=== PATIENT | male | born 1955 | race Caucasian/White ===

== ENCOUNTER 2021-09-24 07:40 | Day surgery (SDC) | payer OTHER ==
--- NOTE | 2021-09-16 12:12 | PCM.EKG ---
[facility] Test Date: 2021-09-16 Test Time: 11:52:58 Pat Name: VARSHA GARCIA Department: Room: Gender: M Supervisor Order Takers: : 1955 Requested By: ELIZABETH AMADOR Order Number: [id number] Reading MD: Measurements Intervals [place] Rate: 58 P: 77 TN: 141 QRS: 73 QRSD: 102 T: 35 QT: 407 QTc: 400 Interpretive Statements Sinus rhythm Consider left atrial enlargement No previous ECG available for comparison Please click the below link to view image of tracing.
[2021-09-16 13:24] LABS: BASOPHIL % 0.5 % (0.0-0.2); EOSINOPHIL # 0.2 10^3/uL (0.0-0.2); EOSINOPHIL % 2.2 % (0.0-5.0); LYMPHOCYTES # 1.86 10^3/uL1 (1.0-4.8); LYMPHOCYTES % 24.3 % (24.0-44.0); MEAN CORP HGB 29.5 pg (26-34); MONOCYTES # 0.7 10^3/uL (0.3-0.8); MONOCYTES % 9.4 % (5.0-12.0); NEUTROPHIL # 4.9 10^3/uL (1.8-7.7); NEUTROPHILS % 63.5 % (41.0-85.0); PLATELET COUNT 261 10^3/uL (150-400); RED CELL DISTRIBUTION WIDTH 14.1 % (11.5-14.5)
[2021-09-16 13:28] LABS: CARBON DIOXIDE 29.3 mmol/L (20.0-32)
[~2021-09-24] VITALS: Ht 172.7 cm; Wt 88.9 kg
[~2021-09-24 07:40] MED LIST: ANCEF ONE; CITA10TA8 PO; LACTATED RINGERS 1,000 ML ONE; LEVO88TA5 PO; NS 100ML 100 ML IV ONE; OMEP40CA8 PO; ROSU10TA2 PO; SUPREP BOWEL PREP KIT PO ONE; [UNRECOGNIZED DRUG - CODE] PO
[2021-09-24] MEDS ORDERED: NS IV ONE (08:00)
[2021-09-24] MEDS ORDERED: ANCEF IV ONE (08:00)
[2021-09-24] MEDS ORDERED: LACTATED RINGERS 1,000 ML IV SCH (08:00)
[2021-09-24 08:02] VITALS: BP 124/76
[2021-09-24 12:28] VITALS: BP 113/63
[2021-09-24] MEDS ORDERED: VERSED ONE (12:42)
[2021-09-24] MEDS ORDERED: SUBLIMAZE ONE (12:42)
[2021-09-24] MEDS ORDERED: DIPRIVAN IV ONE (12:42)
[2021-09-24] MEDS ORDERED: XYLOCAINE 2% 5ML VIAL ONE (12:42)
[2021-09-24 13:31] VITALS: BP 100/60
--- NOTE | 2021-09-24 13:41 | PRM.OPH ---
OPERATIVE REPORT OPERATIVE REPORT Indications: Patient has a history of reflux, and requires a screening colonoscopy. Preoperative diagnosis: GERD, screening colonoscopy Postoperative diagnosis: Duodenitis in the duodenal bulb, evidence of reflux at the GE junction, gastritis in the antrum, polyps at the proximal oral transverse: AB and C, rectal polyps x3 Procedure: EGD with biopsy, colonoscopy with biopsy Surgeon: Uyen Amador MD Anesthesia: Gopal Mendosa, [facility], [facility] [place] Specimens: Duodenal bulb for duodenitis, antrum for gastritis, incisura for H. pylori, GE junction x4 quadrants for reflux, polyps in the proximal transverse colon in bottles A, B, and C; polyps and rectal vault x3 EBL: Trace at all biopsy sites Complications: None Technique of procedure: After reviewing consent, the patient was taken to the operating room [place] the [place]. He was placed in the left lateral decubitus position. A bite block was placed. A timeout was observed by all staff in the room to verify we had the appropriate patient and planned procedure. Supplemental oxygen and anesthesia were given until the patient was appropriately sedated. The lubricated EGD scope was carefully passed down through the esophagus without difficulty into the stomach. Upon entering the duodenum, was apparent and there was some mild duodenitis. I advanced down to the duodenum without difficulty and the rest of the duodenum was normal. Biopsies were taken of the duodenitis in the duodenal bulb. Upon withdrawal, there is some evidence of gastritis in the antrum, and biopsies were obtained. Biopsies were obtained from the in cisura, for H. pylori. There was some evidence of reflux at the GE junction, and biopsies were obtained x4 quadrants. The scope was withdrawn on suction. The bed was rotated in the room, and a rectal exam was performed. Hemorrhoids were noted but no other masses. The lubricated colonoscope was gently placed into the rectum, and advanced to the colon without significant difficulty. At the proximal transverse colon, 3 polyps were noted, and they were all removed with cold forceps. They were all sent in separate jars. We were able to advance to the cecum, with use of minor external manual pressure. Upon withdrawal, the mucosa was looked at closely, to see if there were any more abnormalities. None were noted until we were withdrawn back to the rectal vault. 3 small polyps were noted in the rectal vault, and were all removed with cold forceps. They were all sent in the same bottle. Hemorrhoids were noted. Patient appeared to tolerate the procedure well. All counts were correct at the end of the procedure. UYEN AMADOR MD Sep 24, 2021 13:41
[2021-09-24 13:49] VITALS: BP 102/60
== END 2021-09-24 14:02 | disposition home or self-care (01) ==
LOC: SDC 07:40
PROVIDERS: ATTEND Surgery
DX: Z12.11 Encounter for screening for malignant neoplasm of colon (principal); K21.00 Gastro-esophageal reflux disease with esophagitis, without bleeding; D12.3 Benign neoplasm of transverse colon; D12.8 Benign neoplasm of rectum; K29.70 Gastritis, unspecified, without bleeding; K29.80 Duodenitis without bleeding; K64.9 Unspecified hemorrhoids; E03.9 Hypothyroidism, unspecified; F41.9 Anxiety disorder, unspecified; F32.A Depression, unspecified; I48.91 Unspecified atrial fibrillation; E78.5 Hyperlipidemia, unspecified; Z72.89 Other problems related to lifestyle; Z98.890 Other specified postprocedural states; Z98.1 Arthrodesis status; Z90.89 Acquired absence of other organs; Z79.890 Hormone replacement therapy
CPT/HCPCS: 93005; 85025; 36415; 80048; 85610; 85730; 45380; 43239; 88305; J7120; J0690 ×2; J3490; J2001; J2250; J3010

== ENCOUNTER 2023-03-27 12:09 | Emergency (ER) | payer MEDICARE, OTHER ==
[~2023-03-27] VITALS: Ht 175.3 cm; Wt 90.7 kg
[2023-03-27 12:09] VITALS: BP 145/87; PULSE 70; RESP 20; TEMP 98.1; O2SAT 96
[~2023-03-27 12:09] MED LIST changes: -ANCEF ONE; -LACTATED RINGERS 1,000 ML ONE; -NS 100ML 100 ML IV ONE; -SUPREP BOWEL PREP KIT PO ONE
[2023-03-27 12:36] LABS: BASOPHIL % 0.4 % (0.0-0.2); EOSINOPHIL # 0.3 10^3/uL (0.0-0.2); EOSINOPHIL % 2.9 % (0.0-5.0); HEMATOCRIT(ML) 56.3 % (37.0-53.0); LYMPHOCYTES # 2.03 10^3/uL1 (1.0-4.8); LYMPHOCYTES % 22.3 % (24.0-44.0); MEAN CORP HGB CONCENTRATION 34.1 g/dL (33-36.5); MONOCYTES # 0.6 10^3/uL (0.3-0.8); MONOCYTES % 6.8 % (5.0-12.0); NEUTROPHIL # 6.1 10^3/uL (1.8-7.7); NEUTROPHILS % 67.4 % (41.0-85.0); PLATELET COUNT 249 10^3/uL (150-400); RED CELL DISTRIBUTION WIDTH 15.6 % (11.5-14.5); WHITE BLOOD CELL 9.1 10^3/uL (4.5-11.0)
[2023-03-27 12:43] LABS: +ADD MANUAL DIFF(NO CHRG) NO; HEMOGLOBIN 19.2 g/dL (13.9-16.3)
[2023-03-27 13:00] LABS: ALBUMIN(ML) 3.6 g/dL (3.4-5.0); ALBUMIN/GLOBULIN RATIO 1.058; ANION GAP 9.8; BUN/CREATININE RATIO 18.91 (10.0-20.0); CALCIUM 8.2 mg/dL (8.4-10.5); CARBON DIOXIDE 29.3 mmol/L (20.0-32); CREATININE SERUM 1.11 mg/dL (0.59-1.40); EST GFR, NON-AA 66.5 (>/=60); POTASSIUM 4.1 mmol/L (3.6-5.2)
[2023-03-27 14:39] VITALS: BP 121/79; PULSE 63; RESP 20; TEMP 98.1; O2SAT 96
== END 2023-03-27 14:40 | disposition home or self-care (01) ==
LOC: ER 12:09
DX: M54.12 Radiculopathy, cervical region (principal); M54.2 Cervicalgia; E07.9 Disorder of thyroid, unspecified; E78.00 Pure hypercholesterolemia, unspecified; Z88.5 Allergy status to narcotic agent
CPT/HCPCS: 36415; 70450; 70496; 70498; 72125; 80053; 84484; 85025; 93005; 99285; Q9965

== ENCOUNTER → 2023-08-19 | Day surgery (SDC) | payer MEDICARE, OTHER ==
[2023-08-17] MEDS: MOVIPREP POWDER PACKET PO STA (09:42)
[2023-08-17 10:01] VITALS: BP 111/65; PULSE 60; RESP 18; TEMP 98.3; O2SAT 96
[2023-08-17 10:48] LABS: BASOPHIL % 0.3 % (0.0-0.2); EOSINOPHIL # 0.1 10^3/uL (0.0-0.2); EOSINOPHIL % 1.3 % (0.0-5.0); HEMATOCRIT(ML) 52.4 % (37.0-53.0); HEMOGLOBIN 17.7 g/dL (13.9-16.3); LYMPHOCYTES # 1.71 10^3/uL1 (1.0-4.8); LYMPHOCYTES % 25.4 % (24.0-44.0); MEAN CORP HGB 29.7 pg (26-34); MEAN CORP HGB CONCENTRATION 33.8 g/dL (33-36.5); MEAN CORP VOLUME 87.9 fL (78-100); MONOCYTES # 0.5 10^3/uL (0.3-0.8); MONOCYTES % 7.6 % (5.0-12.0); NEUTROPHIL # 4.4 10^3/uL (1.8-7.7); NEUTROPHILS % 65.4 % (41.0-85.0); PLATELET COUNT 231 10^3/uL (150-400); RED BLOOD CELL 5.96 10^6/uL (4.50-5.90); RED CELL DISTRIBUTION WIDTH 14.1 % (11.5-14.5); WHITE BLOOD CELL 6.7 10^3/uL (4.5-11.0)
[2023-08-17 10:55] LABS: +ADD MANUAL DIFF(NO CHRG) NO
[2023-08-17 11:03] LABS: PROTHROMBIN PROTIME 10.9 SEC (9.7-11.6)
[2023-08-17 11:04] LABS: ALBUMIN(ML) 3.6 g/dL (3.4-5.0); ALBUMIN/GLOBULIN RATIO 1.333; ANION GAP 11.7; BUN/CREATININE RATIO 10.67 (10.0-20.0); CALCIUM 8.9 mg/dL (8.4-10.5); CARBON DIOXIDE 27.5 mmol/L (20.0-32); CREATININE SERUM 1.03 mg/dL (0.59-1.40); EST GFR, NON-AA 72.5 (>/=60); POTASSIUM 4.2 mmol/L (3.6-5.2)
[2023-08-19] VITALS (7 sets, daily range): BP systolic 97–122; BP diastolic 60–73; PULSE 62–79; RESP 16–18; TEMP 97.3–98.5; O2SAT 91–96
[~2023-08-19] VITALS: Ht 175.3 cm; Wt 90.7 kg
[~2023-08-19] MED LIST changes: +DIPRIVAN IV ONE; +EZET10TA81 PO; +KRIL1CAP19 PO; +MEFOXIN ONE; +NS 100ML 100 ML IV ONE; +VERSED ONE; +XYLOCAINE 2% 5ML VIAL ONE
[2023-08-19] MEDS: LACTATED RINGERS 1,000 ML IV ONE (06:49)
[2023-08-19] MEDS: VERSED IV ONE (07:35)
[2023-08-19] MEDS: MEFOXIN 2 GM in NS 100ML 100 ML IV ONE (08:04)
== END | disposition home or self-care (01) ==
LOC: SDC 06:27
PROVIDERS: ATTEND Surgery
DX: Z12.11 Encounter for screening for malignant neoplasm of colon (principal); K21.9 Gastro-esophageal reflux disease without esophagitis; K31.89 Other diseases of stomach and duodenum; D12.3 Benign neoplasm of transverse colon; K44.9 Diaphragmatic hernia without obstruction or gangrene; K63.5 Polyp of colon; K29.90 Gastroduodenitis, unspecified, without bleeding; I11.9 Hypertensive heart disease without heart failure; I25.10 Atherosclerotic heart disease of native coronary artery without angina pectoris; E78.5 Hyperlipidemia, unspecified; G47.30 Sleep apnea, unspecified; F32.A Depression, unspecified; F41.9 Anxiety disorder, unspecified; E11.9 Type 2 diabetes mellitus without complications; E03.9 Hypothyroidism, unspecified; Z85.850 Personal history of malignant neoplasm of thyroid; Z87.438 Personal history of other diseases of male genital organs; Z87.891 Personal history of nicotine dependence; Z79.899 Other long term (current) drug therapy; Z90.89 Acquired absence of other organs; Z98.890 Other specified postprocedural states
CPT/HCPCS: 80053; 85025; 36415; 85610; 85730; 45380; 43239; 88305; J0694; J2704; J2001; J2250

== ENCOUNTER → 2024-01-21 | Outpatient (CLI) | payer MEDICARE, OTHER ==
[~2024-01-21] MED LIST changes: -DIPRIVAN IV ONE; -MEFOXIN ONE; -NS 100ML 100 ML IV ONE; -VERSED ONE; -XYLOCAINE 2% 5ML VIAL ONE
== END | disposition home or self-care (01) ==
LOC: LAB 14:42
PROVIDERS: ATTEND Nurse Practitioner Family
DX: E89.0 Postprocedural hypothyroidism (principal)
CPT/HCPCS: 36415; 86800